=== PATIENT | male | born 1955 | race Caucasian/White ===

== ENCOUNTER 2020-01-10 13:24 | Emergency (ER) | payer OTHER, SELFPAY ==
[2020-01-10 13:32] VITALS: BP 180/104; PULSE 114; RESP 18; TEMP 37.3; O2SAT 97; BMI 34.7
--- NOTE | 2020-01-10 13:36 | ED.BACK ---
HPI - Back Pain/Injury General Chief Complaint: Back Pain/Injury Stated Complaint: Lower Middle Back Pain Time Seen by Provider: 01/10/20 13:31 Source: patient Mode of arrival: Ambulatory Limitations: no limitations History of Present Illness HPI Narrative: 64-year-old male here for evaluation of back pain. Patient states that couple days ago he tripped and fell landing on his back. He did not hit his head. There was no loss of conscious. He is not on anticoagulation. Has had back pain since the event. Has been ambulatory in reports no other injuries except for the back pain. Has had prior issues of back pain with surgeries and subsequent removal of hardware. Has an old L1 burst fracture. Patient does report mid/low back pain left greater than right. No bowel or bladder symptoms. No radicular pain to lower extremities. Related Data Previous Rx's Medication Instructions Recorded cyclobenzaprine 10 mg PO TID PRN #14 tab 01/10/20 cyclobenzaprine 10 mg PO TID PRN #20 tab 01/10/20 oxycodone-acetaminophen [Percocet] 1 tab PO Q4-6H PRN #14 tab 01/10/20 oxycodone-acetaminophen [Percocet] 1 tab PO Q4-6H PRN #20 tab 01/10/20 Allergies Allergy/AdvReac Type Severity Reaction Status Date / Time No Known Drug Allergies Allergy Verified 01/10/20 13:32 Review of Systems Constitutional Constitutional: Denies fever(s) and Denies headache(s) ENT Ears, Nose, Mouth, and Throat: Denies headache(s) Cardiovascular Cardiovascular: Denies chest pain and Denies dyspnea Respiratory Respiratory: Denies dyspnea Gastrointestinal Gastrointestinal: Denies abdominal pain and Denies vomiting Musculoskeletal Musculoskeletal: Reports back pain Integumentary/Breasts Skin/Breast: Denies lesions and Denies rash Neurologic Neurologic: Denies behavioral changes and Denies headache(s) Psychiatric Psychiatric: Denies behavioral changes Hematologic/Lymphatic Hematologic/Lymphatic: Denies easy bleeding and Denies easy bruising Patient History Medical History Burst fracture of lumbar vertebra (Acute) Social History lives independently: Yes Exam Initial Vital Signs Initial Vital Signs: Vital Signs Temperature 99.2 F 01/10/20 13:32 Pulse Rate 114 H 01/10/20 13:32 Respiratory Rate 18 01/10/20 13:32 Blood Pressure 180/104 H 01/10/20 13:32 Pulse Oximetry 97 01/10/20 13:32 Const General: cooperative and No comfortable (Uncomfortable) HENMT Head: normal to inspection and normocephalic Resp Effort & Inspection: normal respiratory effort Auscultation: clear to auscultation bilaterally Cardio Rate: tachycardic Rhythm: regular rhythm GI Inspection: non-distended Palpation: soft Back/Spine/Pelvis Back: No CVA tenderness Cervical Spine: No cervical spinal tenderness Thoracic/Lumbar Spine: paraspinal tenderness, thoracic spinal tenderness and lumbar spinal tenderness Skin Lesions: no lesions Rashes: no rashes Neuro General: alert and awake Cognition: normal cognition Speech: speech normal Extrem General: normal to inspection and capillary refill normal Psych Appearance: grossly normal and well kempt Scores GCS Kimberly coma scale eye opening: Spontaneous Jet coma scale verbal response: Orientated Kimberly coma scale motor response: Obey commands Jet coma scale total score: 15 Course Orders Ordered: ED Orders 01/10/20 13:36 CT lumbar spine wo con Stat CT thoracic spine wo con Stat Discontinued Medications Hydromorphone HCl (Dilaudid) 1 mg IM NOW ONE Stop: 01/10/20 13:37 Last Admin: 01/10/20 13:40 Dose: 1 mg Documented by: SANTIAGO Oxycodone/Acetaminophen (Percocet 5/325) 1 tab PO NOW ONE Stop: 01/10/20 14:52 Last Admin: 01/10/20 15:16 Dose: 1 tab Documented by: DEVIN Vital Signs Vital signs: Vital Signs - 8 hr 01/10/20 13:32 01/10/20 14:08 01/10/20 15:00 Temperature 99.2 F Pulse Rate 114 H 105 H Respiratory Rate 18 16 Blood Pressure 180/104 H Blood Pressure [Left Arm] 163/95 H 171/94 H Pulse Oximetry 97 100 MDM - Back Pain/Injury Imaging Data Lumbar spine CT: Radiologist's Impression: [address] [address] [address] Scan Report Signed Patient: Jorge A Hackett EMR#: [id number] : 6Acct:[id number] Age/Sex: 64 / MDate of Service: 01/10/20 Loc: ED Accession Number: [id number] Procedure: CT lumbar spine wo con Ordering Provider: Toni Madsen D.O. PROCEDURE: CT LUMBAR SPINE WO CON INDICATIONS: pain after fall hx of multiple surgeries TECHNIQUE: Noncontrast 3 mm thick sections acquired from the T12 level to the sacrum. Sagittal and coronal reformats were constructed. For radiation dose reduction, the following was used: automated exposure control. COMPARISON: [facility], CT, CT THORACIC SPINE WO CON, 01/10/2020, 13:42. [facility], CT, KIDNEY/ URETER/BLADDER, 01/03/2009, 12:03. [facility], MR, LUMBAR SPINE WITH CONTRAST, 06/08/2007, 13:27. [facility], MR, L-SPINE WITHOUT CONTRAST, 06/05/2007, 18:56. [facility], CR, L-SPINE 2-3 VIEWS, 05/31/2007, 10:20. FINDINGS: Image quality: Excellent. Bones: There is normal bony alignment. No acute vertebral body compression fractures. No suspicious lytic or blastic bony lesions. Central spinal caliber is of normal overall caliber. No pars defects. An old mild anterior wedge compression fracture appears present at L1 with mild secondary heterogeneity within the vertebral body marrow space. This was previously present on MR and CT scanning from 2008 and 2006, respectively. A new compression fracture is not seen. There is no retropulsion of bone fragments into the spinal canal. Soft tissues: No retroperitoneal masses or hematomas. Visualized aorta is normal in caliber. Multiple lobulated renal cortical cysts are again seen, only partially visualized by this study and not having been previously documented also by prior CT scanning 01/03/09. IMPRESSION: Old L1 compression fracture, no new compression fracture seen. Mild degenerative disc disease, no traumatic subluxation found. Dictated by: Carlton Edouard M.D. on 01/10/2020 at 14:38 Approved by: Carlton Edouard M.D. on 01/10/2020 at 14:[address]: Radiologist's Impression: [address] [address] [address] Scan Report Signed Patient: Jorge A Hackett EMR#: [id number] : 6Acct:[id number] Age/Sex: 64 / MDate of Service: 01/10/20 Loc: ED Accession Number: [id number] Procedure: CT thoracic spine wo con Ordering Provider: Toni Madsen D.O. PROCEDURE: CT THORACIC SPINE WO CON INDICATIONS: pain after fall hx of multiple surgeries TECHNIQUE: Noncontrast 3 mm thick sections acquired through the region of interest in the thoracic spine. Sagittal and coronal reformats were then constructed. For radiation dose reduction, the following was used: automated exposure control. COMPARISON: [facility], CR, L-SPINE 2-3 VIEWS, 05/31/2007, 10:20. [facility], MR, LUMBAR SPINE WITH CONTRAST, 06/08/2007, 13:27. [facility], CT, CT LUMBAR SPINE WO CON, 01/10/2020, 13:42. [facility], CT, KIDNEY/ URETER/BLADDER, 01/03/2009, 12:03. FINDINGS: Image quality: Excellent. Bones: There is normal overall bony alignment. There is a suspected acute superior endplate T7 vertebral body compression fracture, depressed by approximately 2-3 mm. No suspicious sclerotic or lytic bony lesions. L1 vertebral body marrow space heterogeneity is again seen and was present during CT scanning 01/03/09. A compression fracture in this area likely was present in 2006 and subsequently. Central spinal canal is of normal overall caliber. Soft tissues: No paravertebral masses or hematomas. Visualized posteromedial lungs appear clear. IMPRESSION: Superior endplate mild T7 compression fracture, presumed to be acute, without retropulsion of bone fragments into the spinal canal. No significant spinal or foraminal stenosis is found. L1 old compression fracture, mild in overall severity. Dictated by: Carlton Edouard M.D. on 01/10/2020 at 14:31 Approved by: Carlton Edouard M.D. on 01/10/2020 at 14:37 MDM Narrative Medical decision making narrative: The L1 findings on the CT scan are old. The T7 findings appear to be new. This does correspond to where his symptoms are located. I did discuss this the patient. Was sent home with symptom treatment. Initial medications sent to the pharmacy here at the hospital but it was then identified that this pharmacy is closed. They were then sent to another facility. He was given return precautions and follow-up instructions. He expressed understanding and agreement with plan Discharge Plan Departure Patient Disposition: Home Clinical Impression: Compression fracture of T7 vertebra Qualifiers: Encounter type: initial encounter Qualified Code(s): S22.060A - Wedge compression fracture of T7-T8 vertebra, initial encounter for closed fracture Discharge Date/Time: 01/10/20 15:44 Instructions: Vertebral Compression Fracture Activity Restrictions/Additional Instructions: Your prescriptions were electronically transmitted to [facility] here at the hospital. The CT scan showed a superior endplate T7 compression fracture which appears to be new. They did see the old L1 fracture. Contact your primary provider for follow-up. You can also contact the [facility] at [phone] for a follow-up. Return to the emergency department for any new or worsening symptoms Prescriptions: New cyclobenzaprine 10 mg tablet 10 mg PO TID PRN (Reason: muscle spasm) Qty: 20 RF: 0 oxycodone-acetaminophen [Percocet] 5-325 mg tablet 1 tab PO Q4-6H PRN (Reason: pain) Qty: 14 RF: 0 cyclobenzaprine 10 mg tablet 10 mg PO TID PRN (Reason: muscle spasm) Qty: 14 RF: 0 oxycodone-acetaminophen [Percocet] 5-325 mg tablet 1 tab PO Q4-6H PRN (Reason: pain) Qty: 20 RF: 0
--- NOTE | 2020-01-10 13:36 | PC.NURSE ---
Pt states he was mowing lawn as usual, tripped, mechanical fall onto back. previous back injury with surgery in 1987. appears in pain. states 03/31. denies bladder bowel dysfunction. denies blood thinners. denies hitting he head. sitting on side of bed in position of comfort. awaiting MD assessment.
[2020-01-10] MEDS: HYDROMORPHONE 1 MG INJ IM (13:40)
[2020-01-10 14:08] VITALS: BP 163/95; PULSE 105; RESP 16; O2SAT 100
[2020-01-10 15:00] VITALS: BP 171/94
[2020-01-10] MEDS: OXYCODONE/ACETAMINOPHEN 5/325 TABLET 1 TAB PO (15:16)
== END 2020-01-10 15:44 | disposition home or self-care (01) ==
PROVIDERS: Emergency Provider Emergency Medicine
DX: S22.060A Wedge compression fracture of T7-T8 vertebra, initial encounter for closed fracture (principal); W01.0XXA Fall on same level from slipping, tripping and stumbling without subsequent striking against object, initial encounter
CPT/HCPCS: 72128; 72131; 96372; 99284; J1170

== ENCOUNTER → 2020-10-31 14:56 | Outpatient (CLI) | payer MEDICARE, SELFPAY ==
[2020-10-31] MEDS: COVID-19 VACC, Ad26(JANSSEN)/PF 0.5 ML IM (15:04)
== END ==
PROVIDERS: Visit Provider Internal Medicine
DX: Z23 Encounter for immunization (principal)
CPT/HCPCS: 0031A; 91303

== ENCOUNTER → 2021-07-07 09:47 | Outpatient (CLI) | payer OTHER, SELFPAY ==
[2021-07-07 11:02] LABS: COVID19 -Nasal RAPID Negative (Negative)
== END ==
PROVIDERS: Visit Provider Specialist
DX: Z01.812 Encounter for preprocedural laboratory examination (principal); Z20.822 Contact with and (suspected) exposure to COVID-19
CPT/HCPCS: 87635; C9803

== ENCOUNTER 2021-07-08 12:15 | Day surgery (SDC) | payer OTHER, SELFPAY ==
[2021-07-01 10:52] VITALS: BMI 29.0
[2021-07-08] VITALS (8 sets, daily range): BP systolic 127–154; BP diastolic 62–79; PULSE 68–83; RESP 12–20; TEMP 36.6–37.2; O2SAT 93–100; BMI 29.0
[2021-07-08] MEDS: LACTATED RINGERS 1,000 ML 42 ML IV (13:17)
[2021-07-08] MEDS: ACETAMINOPHEN 325 MG TABLET 975 MG PO (13:18)
--- NOTE | 2021-07-08 13:57 | SUR.OPER ---
Supine on padded OR bed, head on pillow, arms secured on padded arm boards at <90 degrees abduction, legs uncrossed, safety belt at thigh, tape over blanket over lower legs.
--- NOTE | 2021-07-08 14:07 | PM.PREOP ---
Pre-operative Note COVID-19 COVID-19 status: Negative Result date/Date tested (Pos, Neg/Pending): 07/07/21 Interval Note History & Physical reviewed/Exam performed by Physician: Yes Changes to H&P: No
[2021-07-08] MEDS: CEFAZOLIN 1 GM VIAL 2 GM IV (14:32)
[2021-07-08] MEDS: BUPIVACAINE 0.5% (PF) VIAL 30 ML INJ (14:41)
--- NOTE | 2021-07-08 15:44 | PM.OP.1 ---
Operative Date/Time/Diagnoses Date of procedure: 07/08/21 Time of procedure: 15:44 Pre-op diagnosis: Reducible umbilical hernia Post-op diagnosis: same Procedure & Clinicians Procedure: Repair with underlay of mesh Same procedure as scheduled: Yes Indications: Symptomatic umbilical hernia Surgeon: [place] Click Yes if Unassisted: Yes Anesthesia Type: General Operative Notes Findings: Well-circumscribed defect about 1.5 cm across. Repaired with an underlay of 2.5 in circular mesh. Closure Type: primary Specimen(s): none sent Prosthetic devices, grafts, tissues, transplants, or devices: Mesh placed in the preperitoneal space Estimated Blood Loss (mL): 5 Blood products transfused: none Procedure in detail: The patient was placed supine on the operating room table and underwent general LMA anesthesia. They were prepped and draped in the usual fashion. A curvilinear incision was made under the umbilicus and carried down to the level of the fascia. The fascia at the edge of the defect was cleared of sac and preperitoneal tissue. The opening was approximately 1.5 cm. I placed circular piece 2.5 in diameter mesh under the fascia and secured it at the points of the compass that is superior, inferior, medial and lateral with 0 Ethibond suture. The tails of this circular mesh was our incorporated into the closure of the fascia using interrupted 0 Ethibond sutures. The subcu was closed with interrupted 3 0 Vicryl and the skin was closed with a running 4-0 Vicryl subcuticular stitch and Steri-Strips. Dressing was applied and the patient was awakened and taken to the recovery area in good condition. The patient appeared to tolerate the procedure well. Complications: none Post-operative Condition: stable Disposition: PACU
--- NOTE | 2021-07-08 15:53 | SUR.PHASEI ---
1540 hrs: Pt arrives PACU breathing unassisted. Report from Bethany HILL and Dr Swift. All questions answered.
[2021-07-08] MEDS: OXYCODONE IR 5 MG TABLET PO (16:09)
== END 2021-07-08 16:40 | disposition home or self-care (01) ==
PROVIDERS: PCP Family Medicine; Referring Provider Specialist; Visit Provider Specialist
PROC: (CPT 49585; principal; 2021-07-08 13:15)
DX: K42.9 Umbilical hernia without obstruction or gangrene (principal); I10 Essential (primary) hypertension; E11.9 Type 2 diabetes mellitus without complications; Z79.84 Long term (current) use of oral hypoglycemic drugs
CPT/HCPCS: 49585; 82962; C1781; J0690; J1885; J2405; J2704; J3010